=== PATIENT | male | born 1935 | race Caucasian/White ===

== ENCOUNTER 2019-07-16 12:36 | Inpatient (IN) | payer MEDICARE, OTHER ==
[~2019-07-16] VITALS: Ht 175.3 cm; Wt 99.8 kg
[2019-07-16] MEDS ORDERED: SODIUM CHLORIDE 0.9% 1000ML 1,000 ML IV STA ×3 (13:15→19:05)
[2019-07-16] MEDS ORDERED: ONDANSETRON HCL INJ 2MG/ML 2ML 2 MG/ML VIAL IV STA (13:15)
[2019-07-16 13:32] LABS: BASOPHILS % 0.3 % (0.0-1.0); EOSINOPHILS % 0.1 % (0.0-6.0); HEMATOCRIT 49.4 % (38.2-49.6); HEMOGLOBIN 17.3 g/dL (14.0-18.0); LYMPHOCYTES # (AUTO) 0.9 (1.0-3.2); LYMPHOCYTES % 5.7 % (18.0-39.1); MEAN CORPUSCULAR HEMOGLOBIN 32.5 pg (28-32); MEAN CORPUSCULAR VOLUME 92.7 fL (81-99); MONOCYTES # (AUTO) 0.7 (0.2-0.8); MONOCYTES % 4.5 % (4.4-11.3); NEUTROPHILS # (AUTO) 13.4 (2.1-6.9); NEUTROPHILS % 88.9 % (38.7-80.0); PLATELET COUNT 211 x10e3/uL (140-360); RED BLOOD COUNT 5.33 x10e6/uL (4.3-5.7); RED CELL DISTRIBUTION WIDTH 12.2 % (11.7-14.4)
--- NOTE | 2019-07-16 13:35 | Emergency Department Note ---
History of Present Illnes History of Present Illness Chief Complaint: General Medicine Complaints History of Present Illness This is a 83 year old male . from [place] via ems c/o ams HERE FROM [facility] WEAKNESS AND AMS THAT STARTED LAST NIGHT. Historian: Patient Arrival Mode: EMS Onset quality: unable to specify Duration (how long): day(s) (last night) Timing of current episode: constant Progression: unchanged Chronicity: new Context: recent illness, recent surgery, recent immobilization, recent travel, trauma/injury, new medications, hx of DVT/PE, non-compliance w/ medications, other Relieving factors: none Exacerbating factors: none Associated symptoms: confusion Treatments prior to arrival: none (JOSEFINA FIERRO NP) Past Medical/Family History Physician Review I have reviewed the patient's past medical and family history. Any updates have been documented here. (JOSEFINA FEIRRO NP) Past Medical History Unable to obtain PMH: Unable to obtain due to, altered mental status Recent Fever: No Clinical Suspicion of Infectio: No New/Unexplained Change in Ment: Yes Past Medical History: Hypertension, CVA, A-Fib, Hypothyroidism, GERD Past Surgical History: None (JOSEFINA FIERRO NP) Social History Smoking Cessation: Never Smoker Alcohol Use: None Any Illegal Drug Use: No TB Exposure/Symptoms: No (JOSEFINA FIERRO NP) Family History Family history of heart diseas: No (JOSEFINA FIERRO NP) Other Any Pre-Existing Lines (PICC,: No (JOSEFINA FIERRO NP) Review of Systems ROS Narrative Unable to obtain ROS: altered mental status (JOSEFINA FIERRO NP) Review of Systems Constitutional: no symptoms; chills, diaphoresis, fever EENTM: ear discharge, nose congestion Cardiovascular: edema Respiratory: cough, dyspnea, stridor, wheezing Gastrointestinal: vomiting Genitourinary: discharge Musculoskeletal: joint swelling Neurological: as per HPI, other (AMS) Psychological: no symptoms Endocrine: no symptoms Hematological/Lymphatic: no symptoms Review of other systems All other systems reviewed and negative. (JOSEFINA FIERRO NP) Physical Exam Related Data Allergies: Coded Allergies: lisinopril (Verified Allergy, Severe, 07/16/19) Uncoded Allergies: POLLEN (Allergy, Severe, 07/16/19) Unable to obtain allergies: altered mental status Triage Vital Signs Vital Signs Date Time Temp Pulse Resp B/P (MAP) Pulse Ox O2 Delivery O2 Flow Rate FiO2 5/20/20 12:38 97.8 73 16 130/76 100 Vital Signs Date Time Temp Pulse Resp B/P (MAP) Pulse Ox O2 Delivery O2 Flow Rate FiO2 07/16/19 12:38 97.8 73 16 130/76 100 Vital signs reviewed: Yes (JOSEFINA FIERRO DINING SERVICE WORKER) Physical Exam CONSTITUTIONAL Constitutional: well-developed, well-nourished HENT HENT: normocephalic, atraumatic HENT L/R: left ext ear normal, right ext ear normal EYES Eyes: conjunctivae normal NECK Neck: ROM normal PULMONARY Pulmonary: effort normal, breath sounds normal CARDIOVASCULAR Cardiovascular: regular rhythm GASTROINTESTINAL Abdominal: soft, bowel sounds normal GENITOURINARY Genitourinary: penis normal SKIN Skin: warm, dry; erythema MUSCULOSKELETAL Musculoskeletal: edema NEUROLOGICAL non verbal lethargic response to pain PSYCHOLOGICAL Exam - additional comments pt brought to ed via ems from [place] hx dementia - report AMS decreased activity lethargic non verbal when name called pt looks around (JOSEFINA FIERRO DINING SERVICE WORKER) Results Laboratory Laboratory Laboratory Tests Test 07/16/19 13:25 White Blood Count 15.04 x10e3/uL (4.8-10.8) Red Blood Count 5.33 x10e6/uL (4.3-5.7) Hemoglobin 17.3 g/dL (14.0-18.0) Hematocrit 49.4 % (38.2-49.6) Mean Corpuscular Volume 92.7 fL (81-99) Mean Corpuscular Hemoglobin 32.5 pg (28-32) Mean Corpuscular Hemoglobin Concent 35.0 g/dL (31-35) Red Cell Distribution Width 12.2 % (11.7-14.4) Platelet Count 211 x10e3/uL (140-360) Neutrophils (%) (Auto) 88.9 % (38.7-80.0) Lymphocytes (%) (Auto) 5.7 % (18.0-39.1) Monocytes (%) (Auto) 4.5 % (4.4-11.3) Eosinophils (%) (Auto) 0.1 % (0.0-6.0) Basophils (%) (Auto) 0.3 % (0.0-1.0) Neutrophils # (Auto) 13.4 (2.1-6.9) Lymphocytes # (Auto) 0.9 (1.0-3.2) Monocytes # (Auto) 0.7 (0.2-0.8) Eosinophils # (Auto) 0.0 (0.0-0.4) Basophils # (Auto) 0.0 (0.0-0.1) Absolute Immature Granulocyte (auto 0.07 x10e3/uL (0-0.1) Prothrombin Time 15.1 seconds (11.9-14.5) Prothromb Time International Ratio 1.12 Activated Partial Thromboplast Time 30.8 seconds (23.8-35.5) Urine Color Yellow (YELLOW) Urine Clarity Sl cloudy (CLEAR) Urine pH 6.5 (5 - 7) Urine Specific [place] 1.020 (1.010-1.025) Urine Protein >=300 (NEGATIVE) Urine Glucose (UA) Negative (NEGATIVE) Urine Ketones Trace (NEGATIVE) Urine Blood Small (NEGATIVE) Urine Nitrite Negative (NEGATIVE) Urine Bilirubin Negative (NEGATIVE) Urine Urobilinogen 0.2 mg/dL (0.2 - 1) Urine Leukocyte Esterase Negative (NEGATIVE) Urine RBC 0-5 /HPF (0-5) Urine WBC None /HPF (0-5) Urine Epithelial Cells Rare /LPF (NONE) Urine Bacteria None /HPF (NONE) Sodium Level 138 mmol/L (136-145) Potassium Level 4.8 mmol/L (3.5-5.1) Chloride Level 102 mmol/L (98-107) Carbon Dioxide Level 21 mmol/L (22-29) Anion Gap 19.8 mmol/L (8-16) Blood Urea Nitrogen 15 mg/dL (7-26) Creatinine 1.80 mg/dL (0.72-1.25) Estimat Glomerular Filtration Rate 36 ML/MIN (60-) BUN/Creatinine Ratio 8 (6-25) Glucose Level 129 mg/dL (74-118) Calcium Level 9.8 mg/dL (8.4-10.2) Magnesium Level 1.4 MG/DL (1.3-2.1) Total Bilirubin 2.0 mg/dL (0.2-1.2) Aspartate Amino Transf (AST/SGOT) 19 IU/L (5-34) Alanine Aminotransferase (ALT/SGPT) 13 IU/L (0-55) Alkaline Phosphatase 67 IU/L (40-150) Creatine Kinase 73 IU/L (30-200) Creatine Kinase MB 1.80 ng/mL (0-5.0) Troponin I 0.003 ng/mL (0-0.300) B-Type Natriuretic Peptide 219.1 pg/mL (0-100) Total Protein 7.0 g/dL (6.5-8.1) Albumin 3.8 g/dL (3.5-5.0) Globulin 3.2 g/dL (2.3-3.5) Albumin/Globulin Ratio 1.2 (0.8-2.0) Lipase 12 U/L (8-78) Thyroid Stimulating Hormone (TSH) 1.474 uIU/mL (0.350-4.940) (JOSEFINA FIERRO NP) Imaging Impressions Procedure: [id number] CT/CT BRAIN WO Exam Date: 07/16/19 Exam Time: 1407 REPORT STATUS: Signed Exam: Head CT without contrast History: Altered mental status Comparison studies: None Technique: Axial images were obtained from the skull base to the vertex. Coronal and sagittal images reconstructed from the axial data. Dose modulation, iterative reconstruction, and/or weight based adjustment of the mA/kV was utilized to reduce the radiation dose to as low as reasonably achievable. Radiation dose: Total DLP: 1036.57 mGy*cm. Estimated effective dose: DLP x 0.015 Intravenous contrast: None Findings: Exam is suboptimal due to artifacts related to patient motion. In spite of limitations: Scalp: No abnormalities. Bones: No fractures, blastic or lytic lesions. Brain sulci: Mildly prominent. Ventricles: Mild compensatory dilatation. No hydrocephalus. Extra-axial spaces: No masses, no fluid collection. Parenchyma: No mass, acute hemorrhage or acute cortical vascular insults. Subtle hypodensities in the periventricular white matter are nonspecific but may be mild chronic small vessel ischemic changes. Sellar/suprasellar region: No abnormalities. Craniocervical junction: Patent foramen magnum. No Chiari one malformation. Paranasal sinuses: Clear. Middle ear mastoid cavities: Clear. Incidental findings: Bilateral intraocular lens replacements. Calcified atherosclerosis in the carotid siphons, intradural vertebral arteries and basilar artery. IMPRESSION: No acute abnormalities. Chronic findings: 1. Mild generalized parenchymal volume loss. 2. Mild microvascular ischemic changes. Signed by: Dr. Michelle Selby M.D. on 07/16/2019 2:46 PM Dictated By: MICHELLE SELBY MD 45 Transcribed By: NITISH on 07/16/191445 Procedure: [id number] DX/CHEST SINGLE (PORTABLE) Exam Date: 07/16/19 Exam Time: 1410 REPORT STATUS: Signed X-ray chest AP portable Comparison: None History: Mental status Findings: Left subclavian pacer. Central airways unremarkable. Possible cardiomegaly. Possible layering effusions bilaterally. No pneumothorax. No definite focal airspace disease. Slight prominence of the pulmonary vascular markings could be positional. A mild interstitial edema cannot be ruled out. Visualized skeleton and upper abdomen unremarkable. Carotid artery calcification. Impression: As above. Signed by: Az Ferreira MD on 07/16/2019 2:49 PM Dictated By: [place] FERREIRA MD 48 Transcribed By: NITISH on 07/16/[address] - neg (JOSEFINA FIERRO DINING SERVICE WORKER) Procedures 12 Lead ECG Interpretation Lime Spreader: Interpreted by ED physician (Dr Ocasio) Date: July 16, 2019 Time: 13:23 Prior ENERGY PROJECT ENGINEER tracings: reviewed Rhythm: paced Rate: normal BPM: 64 QRS axis: left Clinical Impression: abnormal ECG (JOSEFINA FIERRO NP) Critical Care Time Subsequent provider I assumed direction of critical care for this patient from another provider of my specialty. (JOSEFINA FIERRO NP) Assessment & Plan Reassessment Reassessment time: 13:20 Reassessment 83 y m pt brought to ed via ems from [place] hx dementia - report AMS decreased activity lethargic non verbal when name called pt looks around - noted appears pt may have vomited at least once dry emesis to chin - pt restless w/ abd exam - Dr Ocasio in eval pt status - lab ekg cxr ct brain ct abd ordered pt medicated w/ zofran ns zosyn azithromax Dr Ocasio in at bedside re eval pt status - pt only reports does not feel good other hayes answering no other questions Vlad RN called [place] got report from nurse - reports pt usually a&o x 3 amb self dresses - sts some time last night became altered suspect sepsis - during triage process lactic blood cultures drawn pt medicted w/ zosyn azithromax ns bolus sirs criteria met - resp 29 - wbc 15.04 @1325 severe sepsis @ 0613 lactic 3.6 pt medicated w/ 2nd ns bolus suspect PNE - ct chest w/o ordered (JOSEFINA FIERRO NP) Assessment & Plan Final Impression: (1) AMS (altered mental status) (2) Leukocytosis (3) Sepsis Assessment & Plan Dr cOasio spoke w/ Dr Guadalupe will admit (JOSEFINA FIERRO NP) Depart Disposition: ADMITTED Last Vital Signs Date Time Temp Pulse Resp B/P (MAP) Pulse Ox O2 Delivery O2 Flow Rate FiO2 07/16/19 12:38 97.8 73 16 130/76 100 (JOSEFINA FIERRO NP) Medications in the ED Sodium Chloride 1,000 ml @ 0 mls/hr Q0M STAT IV ; Start 07/16/19 at 13:15; Stop 07/16/19 at 13:16 Ondansetron HCl 4 mg ONCE STAT IV ; Start 07/16/19 at 13:15; Stop 07/16/19 at 13:16; Status UNV (JOSEFINA FIERRO NP) Physician Attestation Provider Attestation The patient's history, exam findings, diagnostics, and a summary of any interventions or procedures was reviewed in detail with our SILVESTRE. I personally interviewed and examined the patient, and I have reviewed and agree with the HPI andexam. My personal exam shows patient very lethargic, responds to pain only, BARNARD's equally, L- decr BS's throughout poor effort, Neck- supple without meningeal signs. I confirm the diagnosis as documented by the SILVESTRE. I have reviewed and agree with the care plan articulated in the disposition section. (JULY OCASIO MD) JOSEFINA FIERRO NP July 16, 2019 13:35 JULY OCASIO MD July 16, 2019 16:48
[2019-07-16 13:41] LABS: CLARITY,URINE SL CLOUDY (CLEAR); COLOR,URINE YELLOW (YELLOW)
[2019-07-16 13:42] LABS: BILIRUBIN,URINE NEGATIVE (NEGATIVE); KETONES,URINE TRACE (NEGATIVE); LEUKOCYTE ESTERASE ,URINE NEGATIVE (NEGATIVE); NITRITE,URINE NEGATIVE (NEGATIVE); PROTEIN,URINE DIPSTICK >=300 (NEGATIVE); URINE UROBILINOGEN 0.2 mg/dL (0.2 - 1)
[2019-07-16 13:43] LABS: INR 1.12; PARTIAL THROMBOPLASTIN TIME 30.8 seconds (23.8-35.5); PROTHROMBIN TIME 15.1 seconds (11.9-14.5)
[2019-07-16 13:53] LABS: EPITHELIAL CELLS,URINE RARE /LPF; RBC,URINE 0-5 /HPF (0-5)
[2019-07-16 13:54] LABS: ALBUMIN 3.8 g/dL (3.5-5.0); ALBUMIN/GLOBULIN RATIO 1.2 (0.8-2.0); ANION GAP 19.8 mmol/L (8-16); CALCIUM 9.8 mg/dL (8.4-10.2); CREATININE, SERUM 1.8 mg/dL (0.72-1.25); MAGNESIUM 1.4 MG/DL (1.3-2.1); POTASSIUM 4.8 mmol/L (3.5-5.1)
[2019-07-16] MEDS ORDERED: AZITHROMYCIN 500MG/NS 250 ML 250 ML IV ONE (14:00)
[2019-07-16] MEDS ORDERED: PIPER-TAZ 3.375 GM 50 ML IV ONE (14:00)
[2019-07-16 14:13] LABS: CREATINE KINASE MB 1.8 ng/mL (0-5.0); THYROID STIMULATING HORMONE 1.474 uIU/mL (0.350-4.940)
--- NOTE | 2019-07-16 14:50 | Diagnostic Imaging Report ---
Exam: Head CT without contrast History: Altered mental status Comparison studies: None Technique: Axial images were obtained from the skull base to the vertex. Coronal and sagittal images reconstructed from the axial data. Dose modulation, iterative reconstruction, and/or weight based adjustment of the mA/kV was utilized to reduce the radiation dose to as low as reasonably achievable. Radiation dose: Total DLP: 1036.57 mGy*cm. Estimated effective dose: DLP x 0.015 Intravenous contrast: None Findings: Exam is suboptimal due to artifacts related to patient motion. In spite of limitations: Scalp: No abnormalities. Bones: No fractures, blastic or lytic lesions. Brain sulci: Mildly prominent. Ventricles: Mild compensatory dilatation. No hydrocephalus. Extra-axial spaces: No masses, no fluid collection. Parenchyma: No mass, acute hemorrhage or acute cortical vascular insults. Subtle hypodensities in the periventricular white matter are nonspecific but may be mild chronic small vessel ischemic changes. Sellar/suprasellar region: No abnormalities. Craniocervical junction: Patent foramen magnum. No Chiari one malformation. Paranasal sinuses: Clear. Middle ear mastoid cavities: Clear. Incidental findings: Bilateral intraocular lens replacements. Calcified atherosclerosis in the carotid siphons, intradural vertebral arteries and basilar artery. IMPRESSION: No acute abnormalities. Chronic findings: 1. Mild generalized parenchymal volume loss. 2. Mild microvascular ischemic changes. Signed by: Dr. Khai Selby M.D. on 07/16/2019 2:46 PM
--- NOTE | 2019-07-16 14:52 | Diagnostic Imaging Report ---
X-ray chest AP portable Comparison: None History: Mental status Findings: Left subclavian pacer. Central airways unremarkable. Possible cardiomegaly. Possible layering effusions bilaterally. No pneumothorax. No definite focal airspace disease. Slight prominence of the pulmonary vascular markings could be positional. A mild interstitial edema cannot be ruled out. Visualized skeleton and upper abdomen unremarkable. Carotid artery calcification. Impression: As above. Signed by: Imtiaz Cunha MD on 07/16/2019 2:49 PM
--- NOTE | 2019-07-16 15:20 | NUR ---
calling [facility] to obtain a better history of patient.
--- NOTE | 2019-07-16 15:31 | Diagnostic Imaging Report ---
CT of the abdomen and pelvis. Comparison: None Clinical History: Abdominal pain Technique: Helical CT scan of the abdomen and pelvis was performed. Intravenous contrast administration was not utilized. Oral contrast administration was not utilized. Coronal and sagittal reconstructions were generated from the raw data. Multiple images were submitted for interpretation. This exam was performed according to our departmental dose-optimization program which includes automated exposure control, adjustment of the mA and/or kV according to patient size Discussion: Inferior chest: Minimal dependent atelectasis otherwise unremarkable. There is a single chamber pacer wire in place. Coronary artery calcification. Liver: Unremarkable Spleen: Unremarkable Pancreas: Unremarkable for age Biliary tree and gallbladder: Post cholecystectomy. Otherwise unremarkable Adrenal glands: Unremarkable Kidneys and ureters: Shrunken kidneys with atrophic cortex. Otherwise unremarkable Vasculature: Atherosclerotic calcification. Lymph nodes: No lymphadenopathy Bowel: Unremarkable Pelvis: Urinary bladder is unremarkable. Prostate enlarged. Seminal vesicles unremarkable. Pelvic wall unremarkable. Peritoneum: Unremarkable Perineal compartments: unremarkable. Fluid: No free fluid or air. Bones: Degenerative disease Body wall: Small metallic densities in the left lower abdominal/pelvic wall suggestive of prior surgery or hernia repair. Impression: Limited CT showing no significant abnormality on this exam. Signed by: Imtiaz Cunha MD on 07/16/2019 3:28 PM
[2019-07-16] MEDS ORDERED: FAMOTIDINE 20 MG/2 ML VIAL IV SCH (16:00)
[2019-07-16] MEDS ORDERED: ONDANSETRON HCL INJ 2MG/ML 2ML 2 MG/ML VIAL IV PRN (16:00)
[2019-07-16] MEDS ORDERED: SODIUM CHLORIDE 0.9% 1000ML 1,000 ML IV SCH (16:00)
[2019-07-16] MEDS ORDERED: HYDRALAZINE HCL 20 MG/ML VIAL IV PRN (17:00)
[2019-07-16] MEDS ORDERED: ACETAMINOPHEN 325 MG TAB PO PRN (17:00)
[2019-07-16] MEDS ORDERED: AZITHROMYCIN 500MG/NS 250 ML 250 ML IV SCH (17:00)
[2019-07-16] MEDS: PIPERACILLIN/TAZO 2.25 GM 50 ML IV SCH ×2 (17:42→18:00)
--- NOTE | 2019-07-16 17:58 | Diagnostic Imaging Report ---
EXAMINATION: CT scan of the chest without contrast. TECHNIQUE: Spiral CT images of the chest were performed from the lung apices to the level of the adrenal glands. No intravenous contrast was administered per physician's request. Coronal and sagittal reformatted images were obtained. COMPARISON: None. CLINICAL HISTORY:AMS, chest pain, suspect pneumonia DISCUSSION: ABSENCE OF INTRAVENOUS CONTRAST DECREASES SENSITIVITY FOR DETECTION OF FOCAL LESIONS AND VASCULAR PATHOLOGY. LINES/TUBES: Left upper chest single lead cardiac device, with the distal tip in the right ventricle. LUNGS AND AIRWAYS: Minimal dependent atelectasis in bilateral lower lobes. Rest of the lungs show no consolidation, nodules or masses. 5-6 mm calcification with associated pleural linear scarring in the medial left apex (series 3, image 26). The airways are clear, without endobronchial lesions. PLEURA: No pneumothorax or pleural effusions. HEART AND MEDIASTINUM: The thyroid gland is normal. Moderate cardiomegaly, with biatrial enlargement. Atherosclerotic calcification of the aortic valves, coronary arteries and thoracic aorta. Aorta is nonaneurysmal. Main pulmonary artery is normal in caliber. LYMPH NODES: Borderline enlarged right paraesophageal node (series 2, image 68). No mediastinal, hilar or axillary adenopathy. ABDOMEN: Please see CT abdomen and pelvis performed same date for further detail. BONES AND SOFT TISSUES: No aggressive lytic or suspicious sclerotic lesions. Multilevel degenerated discs in the lower thoracic and upper lumbar spine, with intervertebral disc space narrowing and osteophytosis. Soft tissues are grossly unremarkable. IMPRESSION: 1. No CT evidence of pneumonia. 2. Minimal dependent atelectasis in bilateral lower lobes. Signed by: Dr. Ar Griffin M.D. on 07/16/2019 5:54 PM
[2019-07-16] MEDS ORDERED: LORAZEPAM INJ 2 MG/ML VIAL IV STA (20:21)
[2019-07-16] MEDS ORDERED: LORAZEPAM INJ 2 MG/ML VIAL ONE (20:29)
[2019-07-16] MEDS ORDERED: DEXTROSE 5%/0.9% SOD CHL 1,000 ML IV ONE (21:00)
[2019-07-16] MEDS ORDERED: LORAZEPAM INJ 2 MG/ML VIAL IV ONE (21:00)
[2019-07-16] MEDS ORDERED: SODIUM CHLORIDE 0.9% 1000ML 1,000 ML IV ONE (21:00)
[2019-07-16 23:08] VITALS: BP 139/73
[2019-07-16 23:10] VITALS: BP 139/73
--- NOTE | 2019-07-16 23:10 | NUR ---
PATIENT ARRIVED TO UNIT IN STABLE CONDITION AND RESTING. PATIENT EASILY AWAKEN BUT SCRATCHES AT HIMSELF AND GRASPS OR PULLS AT STAFF WHEN TOUCHING HIM, HE DOES NOT VERBALLY RESPOND OTHER THAN GRUNTING. WILL CONT TO MONITOR.
[2019-07-17] VITALS (11 sets, daily range): BP systolic 110–152; BP diastolic 64–111
[2019-07-17] MEDS: LORAZEPAM INJ 2 MG/ML VIAL IV PRN ×5 (00:15→22:02)
--- NOTE | 2019-07-17 00:15 | NUR ---
WHEN NURSE ATTEMPTED BLOOD DRAW FOR LACTIC DUE PATIENT BECAME COMBATIVE AND SCRATCHES STAFF OR HITS. PATIENT TRYING TO GET OUT OF BED BUT VERBALLY UNRESPONSIVE TO DIRECTION AND WHILE TRYING TO GET OUT OF BED LOOKS OFF INTO THE DISTANCE. UNABLE TO CALM PATIENT DOWN AND PATIENT PULLING AT LINES. MEDICATED WITH ORDERED ATIVAN. WILL CONTINUE TO MONITOR.
[2019-07-17] MEDS: PIPERACILLIN/TAZO 2.25 GM 50 ML IV SCH ×2 (00:42→05:39)
--- NOTE | 2019-07-17 03:50 | NUR ---
PATIENT BECAME COMBATIVE WHILE TRYING TO CHANGE HIS DIAPER AND OBTAIN NEXT LACTIC, GRABBED NURSES ARM AND WAS UNABLE TO BE CALMED DOWN BY SEVERAL STAFF, MEDICATED WITH ORDERED ATIVAN.
[2019-07-17 04:19] LABS: BASOPHILS % 0.4 % (0.0-1.0); EOSINOPHILS % 0.1 % (0.0-6.0); HEMATOCRIT 43.2 % (38.2-49.6); HEMOGLOBIN 14.8 g/dL (14.0-18.0); LYMPHOCYTES # (AUTO) 1.4 (1.0-3.2); LYMPHOCYTES % 13.3 % (18.0-39.1); MEAN CORPUSCULAR HEMOGLOBIN 32.7 pg (28-32); MEAN CORPUSCULAR HGB CONC 34.3 g/dL (31-35); MEAN CORPUSCULAR VOLUME 95.4 fL (81-99); MONOCYTES # (AUTO) 1.3 (0.2-0.8); MONOCYTES % 12.3 % (4.4-11.3); NEUTROPHILS # (AUTO) 7.9 (2.1-6.9); NEUTROPHILS % 73.5 % (38.7-80.0); PLATELET COUNT 170 x10e3/uL (140-360); RED BLOOD COUNT 4.53 x10e6/uL (4.3-5.7); RED CELL DISTRIBUTION WIDTH 12.7 % (11.7-14.4)
[2019-07-17 04:34] LABS: ALBUMIN 3.2 g/dL (3.5-5.0); ALBUMIN/GLOBULIN RATIO 1.1 (0.8-2.0); ANION GAP 17.6 mmol/L (8-16); CALCIUM 8.5 mg/dL (8.4-10.2); CHOL/HDL RATIO 4.1 (3.9-4.7); CREATININE, SERUM 1.58 mg/dL (0.72-1.25); POTASSIUM 4.6 mmol/L (3.5-5.1)
[2019-07-17 04:54] LABS: CREATINE KINASE MB 9.1 ng/mL (0-5.0); THYROID STIMULATING HORMONE 1.262 uIU/mL (0.350-4.940)
--- NOTE | 2019-07-17 06:39 | NUR ---
CALLED [facility] TO NOTIFY OF PATIENT STATUS AND CURRENT MORNING LABS WITH PT BP LOW 90S. ORDERED TO CHANGE FLUIDS TO D5 1/2NS @100ML/HR AND THEY WILL SEE PT THIS AM.
[2019-07-17] MEDS ORDERED: DEXTROSE 5%/0.225% SOD CHL 1,000 ML IV SCH (06:45)
[2019-07-17] MEDS: DEXTROSE 5%/0.45% SOD CHL 1,000 ML IV SCH ×2 (07:02→21:42)
--- NOTE | 2019-07-17 07:39 | NUR ---
PT SLEEPING AT THIS TIME, BEDSIDE REPORT GIVEN TO FLORY RN ABOUT PT AND STATUS. LACTIC DUE AT 8AM.
[2019-07-17] MEDS: FAMOTIDINE 20 MG/2 ML VIAL IV SCH ×2 (08:21→21:42)
--- OUTSIDE RECORDS SUMMARY | 2019-07-17 09:06 | XMS REPORT | Summary of Care ---
Author Author [facility] Organization [facility] Address Unknown Phone Unavailable Encounter ANANTH Strickland(FIN) [id number] Date(s): 01/27/19 - 01/27/19 [facility] [address] [place] [address] 2 [phone] Discharge Disposition: Home or Self Care Attending Physician: Gerber Ritter MD Vital Signs No data available for this section Problem List Condition Effective Dates Status Health Status Informan t Gout(Confirmed) Resolved Hypertension(Confirm Resolved ed) Hypothyroid(Confirme Resolved d) Allergies, Adverse Reactions, Alerts No Known Allergies Medications acetaminophen 325 mg oral tablet 650 mg = 2 tab, PO, Q4H, 0 Refill(s) Start Date: 01/27/19 Status: Ordered allopurinol 100 mg oral tablet 100 mg = 1 tab, PO, BID, 0 Refill(s) Start Date: 01/27/19 Status: Ordered aspirin 81 mg tablet, enteric coated 81 mg = 1 tab, PO, Daily, # 90 tab, 3 Refill(s) Start Date: 01/27/19 Status: Ordered Eliquis 5 mg oral tablet 5 mg, PO, Q12H, 0 Refill(s) Start Date: 01/27/19 Status: Ordered erythromycin topical 2% gel TOP, BID, 0 Refill(s) Start Date: 01/27/19 Status: Ordered folic acid 0.4 mg oral tablet 0.4 mg = 1 tab, PO, Daily, # 100 tab, 0 Refill(s) Start Date: 01/27/19 Status: Ordered hydrALAZINE 25 mg oral tablet 25 mg = 1 tab, PO, QID, 0 Refill(s) Start Date: 01/27/19 Status: Ordered levothyroxine 125 mcg (0.125 mg) oral tablet 125 microgram = 1 tab, PO, Daily, 0 Refill(s) Start Date: 01/27/19 Status: Ordered liothyronine 5 mcg oral tablet 5 microgram = 1 tab, PO, Daily, 0 Refill(s) Start Date: 01/27/19 Status: Ordered loperamide 2 mg oral capsule 2 mg = 1 cap, PO, Q4H, PRN loose stools, # 60 cap, 0 Refill(s) Start Date: 01/27/19 Stop Date: 02/06/19 Status: Ordered metoprolol succinate 25 mg oral capsule, extended release 25 mg = 1 cap, PO, Daily, 0 Refill(s) Start Date: 01/27/19 Status: Ordered Milk of Magnesia PO, Bedtime, 0 Refill(s) Start Date: 01/27/19 Status: Ordered omeprazole 20 mg oral delayed release capsule 20 mg = 1 cap, PO, Daily, 0 Refill(s) Start Date: 01/27/19 Status: Ordered polyethylene glycol 3350 17 gm, PO, Daily, 0 Refill(s) Start Date: 01/27/19 Status: Ordered QUEtiapine 50 mg oral tablet 50 mg = 1 tab, PO, BID, 0 Refill(s) Start Date: 01/27/19 Status: Ordered ramipril 10 mg oral capsule 10 mg = 1 cap, PO, Daily, 0 Refill(s) Start Date: 01/27/19 Status: Ordered Stool Softener with Laxative 50 mg-8.6 mg oral tablet 2 tab, PO, Bedtime, 0 Refill(s) Start Date: 01/27/19 Status: Ordered Vitamin C 500 mg oral tablet 500 mg = 1 tab, PO, Daily, 0 Refill(s) Start Date: 01/27/19 Status: Ordered Vitamin D3 5000 intl units oral capsule 5,000 IntlUnit = 1 cap, PO, Daily, # 30 cap, 1 Refill(s) Start Date: 01/27/19 Status: Ordered Results No data available for this section Immunizations No data available for this section Procedures Procedure Date Related Diagnosis Body Site Status TURP - Transurethral resection of prostate 2017 Completed Gallbladder operation Completed Social History Social History Type Response Smoking Status Former smoker; Exposure to Tobacco Smoke None; Cigarette Smoking Last 365 Days No; Reg Smoking Cessation Counseli ng No entered on: 01/27/19 Assessment and Plan No data available for this section
--- OUTSIDE RECORDS SUMMARY | 2019-07-17 09:06 | XMS REPORT | Continuity of Care Document ---
Author Author Chintan Lozano [employer] JOHNATHAN Huffman [employer] Address Unknown Phone Unavailable Care Team Providers Care Emission Specialist Name Role Phone [employer] Unavailable Un available Problems Problem Status Onset Date Classification Date Reported Comments Source Gout (disorder) Resolved Problem 01/30/2019 [facility] Hypertensive disorder, systemic arterial (disorder) Resolved Problem 01/30/2019 [facility] Hypothyroidism (disorder) Reso lved Problem 06/2018 [facility] Medications Medication Details Route Status Patient Instructions Ordering Provider Order Date Source omeprazole 20 mg oral delayed release capsule 20 mg = 1 cap, PO, Daily, 0 Refill(s) Active 01/27/2019 [facility] levothyroxine 125 mcg (0.125 mg) oral tablet 125 microgram = 1 tab, PO, Daily, 0 Refill(s) Active 01/27/2019 [facility] allopurinol 100 mg oral tablet 100 mg = 1 tab, PO, BID, 0 Refill(s) Active 01/27/2019 [facility] Aspirin 81 MG Enteric Coated Tablet 81 mg = 1 tab, PO, Daily, # 90 tab, 3 Refill(s) Active 01/27/2019 [facility] Folic Acid 0.4 MG Oral Tablet 0.4 mg = 1 tab, PO, Daily, # 100 tab, 0 Refill(s) Active 01/27/2019 [facility] liothyronine 5 mcg oral tablet 5 microgram = 1 tab, PO, Daily, 0 Refill(s) Active 01/27/2019 [facility] metoprolol succinate 25 mg oral capsule, extended release 25 mg = 1 cap, PO, Daily, 0 Refill(s) Active 01/27/2019 [facility] POLYETHYLENE GLYCOL 3350 17 gm , PO, Daily, 0 Refill(s) Active 01/27/2019 [facility] ramipril 10 mg oral capsule 10 mg = 1 cap, PO, Daily, 0 Refill(s) Active 01/27/2019 [facility] Vitamin D3 5000 intl units oral capsule 5,000 IntlUnit = 1 cap, PO, Daily, # 30 cap, 1 Refill(s) Active 01/27/2019 [facility] apixaban 5 MG Oral Tablet [Eliquis] 5 mg, PO, Q12H, 0 Refill(s) Active 01/27/2019 [facility] Erythromycin 0.02 MG/MG Topical Gel TOP, BID, 0 Refill(s) Active 01/27/2019 [facility] Vitamin C 500 mg oral tablet 5 00 mg = 1 tab, PO, Daily, 0 Refill(s) Active 01/27/2019 [facility] Hydralazine Hydrochloride 25 MG Oral Tablet 25 mg = 1 tab, PO, QID, 0 Refill(s) Active 01/27/2019 [facility] QUEtiapine 50 mg oral tablet 5 0 mg = 1 tab, PO, BID, 0 Refill(s) Active 01/27/2019 [facility] Acetaminophen 325 MG Oral Tablet 650 mg = 2 tab, PO, Q4H, 0 Refill(s) Active 01/27/2019 [facility] loperamide 2 mg oral capsule 2 mg = 1 cap, PO, Q4H, PRN loose stools, # 60 cap, 0 Refill(s) Active 01/27/2019 [facility] Milk of Magnesia PO, Bedtime, 0 Refill(s) Active 01/27/2019 [facility] Stool Softener with Laxative 50 mg-8.6 mg oral tablet 2 tab, PO, Bedtime, 0 Refill(s) Active 01/27/2019 [facility] Allergies, Adverse Reactions, Alerts No Known Medication Allergies Immunizations No Data Provided for This Section Results No Data Provided for This Section Pathology Reports No Data Provided for This Section Diagnostic Reports No Data Provided for This Section Consultation Notes No Data Provided for This Section Discharge Summaries No Data Provided for This Section History and Physicals No Data Provided for This Section Vital Signs No Data Provided for This Section Encounters Location Location Details Encounter Type Encounter Number Reason For Visit Attending Provider ADM Date DC Date Status Source Outpatient [id number] [facility] 01/27/2019 Active [facility] [place] [facility] [id number] [facility] 01/27/2019 01/28/2019 [facility] Procedures Procedure Code Date Perfomer Comments Source TURP - Transurethral resection of prostate [id number] 02/27/2016 [facility] Gallbladder operation [id number] [facility] Assessment and Plan No Data Provided for This Section Plan of Care No Data Provided for This Section Social History Social History Date Source Social History TypeResponse Smoking Status Former smoker; Exposure to Tobacco Smoke None; Cigarette Smoking Last 365 Days No; Reg Smoking Cessation Counseling No entered on: 01/27/19 01/27/[facility] Family History No Data Provided for This Section Advance Directives No Data Provided for This Section Functional Status No Data Provided for This Section
--- OUTSIDE RECORDS SUMMARY | 2019-07-17 10:16 | XMS REPORT | Continuity of Care Document ---
Author Author Chintan Lozano [employer] JOHNATHAN Huffman [place] Address Unknown Phone Unavailable Care Team Providers Care High Density Press Operator Name Role Phone [employer] Unavailable Un available Problems Problem Status Onset Date Classification Date Reported Comments Source Gout (disorder) Resolved Problem 01/30/2019 [facility] Hypertensive disorder, systemic arterial (disorder) Resolved Problem 01/30/2019 [facility] Hypothyroidism (disorder) Reso lved Problem 06/2018 [facility] Medications Medication Details Route Status Patient Instructions Ordering Provider Order Date Source omeprazole 20 mg oral delayed release capsule 20 mg = 1 cap, PO, Daily, 0 Refill(s) Active 01/27/2019 [facility] levothyroxine 125 mcg (0.125 mg) oral tablet 125 microgram = 1 tab, PO, Daily, 0 Refill(s) Active 01/27/2019 [facility] allopurinol 100 mg oral tablet 100 mg = 1 tab, PO, BID, 0 Refill(s) Active 01/27/2019 [facility] Aspirin 81 MG Enteric Coated Tablet 81 mg = 1 tab, PO, Daily, # 90 tab, 3 Refill(s) Active 01/27/2019 [facility] Folic Acid 0.4 MG Oral Tablet 0.4 mg = 1 tab, PO, Daily, # 100 tab, 0 Refill(s) Active 01/27/2019 [facility] liothyronine 5 mcg oral tablet 5 microgram = 1 tab, PO, Daily, 0 Refill(s) Active 01/27/2019 [facility] metoprolol succinate 25 mg oral capsule, extended release 25 mg = 1 cap, PO, Daily, 0 Refill(s) Active 01/27/2019 [facility] POLYETHYLENE GLYCOL 3350 17 gm , PO, Daily, 0 Refill(s) Active 01/27/2019 [facility] ramipril 10 mg oral capsule 10 mg = 1 cap, PO, Daily, 0 Refill(s) Active 01/27/2019 [facility] Vitamin D3 5000 intl units oral capsule 5,000 IntlUnit = 1 cap, PO, Daily, # 30 cap, 1 Refill(s) Active 01/27/2019 [facility] apixaban 5 MG Oral Tablet [Eliquis] 5 mg, PO, Q12H, 0 Refill(s) Active 01/27/2019 [facility] Erythromycin 0.02 MG/MG Topical Gel TOP, BID, 0 Refill(s) Active 01/27/2019 [facility] Vitamin C 500 mg oral tablet 5 00 mg = 1 tab, PO, Daily, 0 Refill(s) Active 01/27/2019 [facility] Hydralazine Hydrochloride 25 MG Oral Tablet 25 mg = 1 tab, PO, QID, 0 Refill(s) Active 01/27/2019 [facility] QUEtiapine 50 mg oral tablet 5 0 mg = 1 tab, PO, BID, 0 Refill(s) Active 01/27/2019 [facility] Acetaminophen 325 MG Oral Tablet 650 mg = 2 tab, PO, Q4H, 0 Refill(s) Active 01/27/2019 [facility] loperamide 2 mg oral capsule 2 mg = 1 cap, PO, Q4H, PRN loose stools, # 60 cap, 0 Refill(s) Active 01/27/2019 [facility] Milk of Magnesia PO, Bedtime, 0 Refill(s) Active 01/27/2019 [facility] Stool Softener with Laxative 50 mg-8.6 mg oral tablet 2 tab, PO, Bedtime, 0 Refill(s) Active 01/27/2019 [facility] Allergies, Adverse Reactions, Alerts No Known [...] ADM Date DC Date Status Source Outpatient [id number] [facility] 01[facility]27/2019 [id number] Procedures Procedure Code Date Perfomer Comments Source TURP - Transurethral resection of prostate [id number] 02/27/2016 [facility] Gallbladder operation [id number] [facility] Assessment and Plan No Data [...]
[2019-07-17] MEDS ORDERED: LIOTHYRONINE SO5 MCG PO (10:33)
[2019-07-17] MEDS ORDERED: LOPERAMIDE2 MG PO (10:33)
[2019-07-17] MEDS ORDERED: VIT (10:33)
[2019-07-17] MEDS ORDERED: SYNTHROID125 MCG PO (10:33)
[2019-07-17] MEDS ORDERED: ELIQUIS5 MG (10:33)
[2019-07-17] MEDS ORDERED: SARNA ANTI-ITC222 ML (10:33)
[2019-07-17] MEDS ORDERED: HYDRALAZINE HCL25 MG PO (10:33)
[2019-07-17] MEDS ORDERED: METOPROLOL SUCC25 MG PO (10:33)
[2019-07-17] MEDS ORDERED: RAMIPRIL5 MG PO (10:33)
[2019-07-17] MEDS ORDERED: ASPIRIN EC81 MG PO (10:33)
[2019-07-17] MEDS ORDERED: ERYTHROMYCIN 2%30 GM (10:33)
[2019-07-17] MEDS ORDERED: MILK OF MA2400 MG/10 PO (10:33)
[2019-07-17] MEDS ORDERED: VITAMIN C500 M1 PO (10:33)
[2019-07-17] MEDS ORDERED: ALLOPURINOL100 MG PO (10:33)
[2019-07-17] MEDS ORDERED: OMEPRAZOLE40 MG PO (10:33)
[2019-07-17] MEDS ORDERED: SENEXON-S 50-81 EACH (10:33)
[2019-07-17] MEDS ORDERED: ACETAMINOPHEN325 M1 PO (10:33)
[2019-07-17] MEDS ORDERED: POLYETHYLENE GL17 GM PO (10:33)
[2019-07-17] MEDS ORDERED: FOLIC ACID (10:33)
[2019-07-17] MEDS: CEFTRIAXONE SOD 1 GM/NS 50 ML 50 ML IV SCH (11:30)
[2019-07-17] MEDS ORDERED: LORAZEPAM INJ 2 MG/ML VIAL IV PRN (11:30)
[2019-07-17 12:04] LABS: CREATINE KINASE MB 9.5 ng/mL (0-5.0)
[2019-07-17] MEDS: APIXABAN 5 MG TABLET PO SCH (17:00)
--- NOTE | 2019-07-17 19:40 | NUR ---
PATIENT'S IV NOTED TO BE INFILTRATED, MULTIPLE FAILED ATTEMPTS BY IMCU AND ICU STAFF CALLED ER FOR NURSE TO PLACE IV SO MEDS CAN BE ADMINISTERED. AWAITING PLACEMENT.
--- NOTE | 2019-07-17 21:17 | NUR ---
CALLED AND SPOKE WITH LIANA STRIKER OFF FOR DR COLLINS AND NOTIFIED OF NO IV ACCESS ATTAINABLE AND PT ON FLUIDS, IV ANTIBIOTICS, AMS, RESTRAINTS AND NPO; ORDERED TO HAVE STAT MIDLINE PLACED, SPOKE WITH FUEL CELL BUILDER AND WAS TOLD TO CALL [facility] FOR PLACEMENT AND NOTIFIED FOR MIDLINE PLACEMENT.
[2019-07-18] VITALS (15 sets, daily range): BP systolic 116–158; BP diastolic 75–95
--- NOTE | 2019-07-18 01:07 | NUR ---
NURSE FROM [facility] TEAM CALLED TO DISCUSS DOING MIDLINE ON PT AND STATES HE DOESNT THINK HE CAN DO IT BECAUSE THE PT IS NOT SEDATED AND CAN'T BE RESTRAINED IN A WAY TO HAVE THE PROCEDURE DONE STERILE AND WANTED ME TO CALL THE DR AND HAVE THE PT GIVEN MORE MEDS SO THAT HE COULD NOT MOVE DURING PROCEDURE. ED THAT PT HAS ORDERED MEDS BUT NOT TO SEDATE AND OFFERED OTHER ASSISTANCE BUT THE NURSE FOR THE TEAM WANTED TO SPEAK WITH DR SO PROVIDED INFORMATION AND HE STATES HE WILL CALL DR AND SEE WHAT CAN BE DONE.
--- NOTE | 2019-07-18 01:10 | NUR ---
[facility] NURSE STATES HE SPOKE WITH LIANA TUFTING MACHINE FIXER FOR [facility] AND THEY WILL HOLD OFF UNTIL AM AND MAKE DECISION ABOUT IF THE PT NEEDS LINE AT THAT TIME SINCE ER WAS ABLE TO GET AN IV IN PT WHILE WAITING FOR THEM. PT IS RESTING COMFORTABLY AT THIS TIME, NO SIGNS OF DISTRESS NOTED. WILL CONT TO MONITOR. NOTIFIED CHARGE NURSE OF SITUATION.
[2019-07-18] MEDS: LORAZEPAM INJ 2 MG/ML VIAL IV PRN (03:28)
[2019-07-18 05:28] LABS: BASOPHILS # (AUTO) 0.1 (0.0-0.1); BASOPHILS % 0.5 % (0.0-1.0); EOSINOPHILS # (AUTO) 0.1 (0.0-0.4); EOSINOPHILS % 0.8 % (0.0-6.0); HEMATOCRIT 44.9 % (38.2-49.6); HEMOGLOBIN 15.2 g/dL (14.0-18.0); LYMPHOCYTES # (AUTO) 1.4 (1.0-3.2); LYMPHOCYTES % 10.9 % (18.0-39.1); MEAN CORPUSCULAR HEMOGLOBIN 32.3 pg (28-32); MEAN CORPUSCULAR HGB CONC 33.9 g/dL (31-35); MEAN CORPUSCULAR VOLUME 95.3 fL (81-99); MONOCYTES # (AUTO) 1.1 (0.2-0.8); MONOCYTES % 8.6 % (4.4-11.3); NEUTROPHILS # (AUTO) 10.2 (2.1-6.9); NEUTROPHILS % 78.7 % (38.7-80.0); PLATELET COUNT 158 x10e3/uL (140-360); RED BLOOD COUNT 4.71 x10e6/uL (4.3-5.7); RED CELL DISTRIBUTION WIDTH 12.5 % (11.7-14.4)
[2019-07-18 05:56] LABS: ALBUMIN 2.9 g/dL (3.5-5.0); ANION GAP 10.9 mmol/L (8-16); CALCIUM 7.9 mg/dL (8.4-10.2); CREATININE, SERUM 1.28 mg/dL (0.72-1.25); MAGNESIUM 1.6 MG/DL (1.3-2.1); POTASSIUM 3.9 mmol/L (3.5-5.1)
[2019-07-18] MEDS ORDERED: LEVOTHYROXINE SODIUM 125 MCG TAB PO SCH (06:00)
[2019-07-18] MEDS ORDERED: LIOTHYRONINE SODIUM 5 MCG TAB PO SCH (06:30)
[2019-07-18] MEDS: PANTOPRAZOLE SOD 40 MG TABEC PO SCH ×2 (07:30→12:25)
[2019-07-18] MEDS: METOPROLOL SUCCINATE 25 MG TAB XL PO SCH ×2 (09:00→12:27)
[2019-07-18] MEDS ORDERED: POLYETHYLENE GLYCOL 3350 17 GM PACK PO SCH (09:00)
[2019-07-18] MEDS: APIXABAN 5 MG TABLET PO SCH ×3 (09:00→18:38)
[2019-07-18] MEDS: ALLOPURINOL 100 MG TAB PO SCH ×2 (09:00→12:25)
[2019-07-18] MEDS: ASPIRIN 81 MG ENTERIC COATED PO SCH ×2 (09:00→12:25)
[2019-07-18] MEDS: FAMOTIDINE 20 MG/2 ML VIAL IV SCH (09:59)
[2019-07-18] MEDS: CEFTRIAXONE SOD 1 GM/NS 50 ML 50 ML IV SCH (12:25)
[2019-07-18] MEDS: QUETIAPINE FUMARATE 25 MG TAB PO SCH ×2 (13:20→15:00)
--- NOTE | 2019-07-18 14:15 | NUR ---
Spoke with regarding SNF eval order. States she has a friend who recommended [facility] [address]. Gave choice for [facility]. Choice letter placed in front of chart. Referral faxed to [facility] at [phone] / Francie with facility was notified of referral.
--- NOTE | 2019-07-18 16:44 | NUR ---
[facility] FACILITY DISCHARGE INFORMATION PATIENT HAS BEEN ACCEPTED TO: [facility] [place] [address] [place] [address] ACCEPTING MEDICAL RECORD TECHNICIAN: Andrey Funk ACCEPTING MD: Dr. Guadalupe ROOM: 415A NURSE CALL REPORT TO: [phone] IMM SIGNED AND OBTAINED (if applicable): yes, discussed with . She verbalized understanding. Signed copy in chart. Copy to THE FOLLOWING DOCUMENTS MUST ACCOMPANY PATIENT FOR TRANSFER: copy of chart. transfer MAR RTF: completed and placed with pt's packet at nurses station [id number] DNR: n/a KIANA Rabago was informed of bed. PASSR and COVID form faxed to facility.
--- NOTE | 2019-07-18 18:34 | Discharge Summary ---
ADMISSION DIAGNOSES: 1. Acute metabolic encephalopathy of unknown source, present on admission. 2. Septic shock, source unknown. 3. Dementia. 4. Gout. 5. Hypertension. 6. Atrial fibrillation. 7. Acute kidney injury. 8. Hypothyroidism. DISCHARGE DIAGNOSES: 1. Acute metabolic encephalopathy of unknown source, present on admission. 2. Septic shock, source unknown. 3. Dementia. 4. Gout. 5. Hypertension. 6. Atrial fibrillation. 7. Acute kidney injury. 8. Hypothyroidism. 9. Rule out COVID. 10. Rule out bacteremia. 11. Rule out urinary tract infection. 12. Rule out hepatic encephalopathy. 13. Rule out pneumonia. HISTORY: Hypothyroidism, dementia, GERD, gout, hypertension, atrial fibrillation, TIA. SURGICAL HISTORY: TURP, cholecystectomy, pacer. FAMILY HISTORY: The patient's dad had cancer. SOCIAL HISTORY: Noncontributory. HOSPITAL COURSE: An 83-year-old male admits from [facility] per nursing staff with complaints of AMS. HPI and history are from the patient's , Yenifer. On admission, the patient's lactic acid that is high of 5.3. The patient was dennis cultured, which all was negative. Urine culture negative. Blood culture negative. CT chest and chest x-ray negative. CT of the brain showed no acute abnormalities. The patient is unable to have an MRI due to his pacemaker. Ammonia level was within normal limits. The patient remained afebrile. Initially, the patient was started on Rocephin for suspected urinary tract infection, but was discontinued at the time of discharge since the urine cultures negative. Plan was discussed with the patient's as it is likely that the patient has worsening vascular dementia as all other exams are negative. The patient will discharge to [facility] for further physical therapy prior to returning to assisted living. The patient's understands discharge instructions and agrees to plan. Vital signs are stable. The patient is afebrile. Dictated by Beatriz Grady NP Chris Guadalupe MD BLAN[facility]/MODL /[id number]
--- NOTE | 2019-07-18 19:35 | NUR ---
EMS on the floor to take patient to [facility].
[2019-07-18] MEDS ORDERED: QUETIAPINE FUMARATE 25 MG TAB PO SCH (21:00)
== END 2019-07-18 20:00 | DRG 871 ==
LOC: ER 12:36 → ERHOLD 16:04 → IMCU 20:09
PROVIDERS: ADMIT Internal Medicine; ATTEND Internal Medicine
DX: A41.9 Sepsis, unspecified organism (principal); R65.21 Severe sepsis with septic shock; G93.41 Metabolic encephalopathy; N17.9 Acute kidney failure, unspecified; M62.82 Rhabdomyolysis; I48.91 Unspecified atrial fibrillation; E03.9 Hypothyroidism, unspecified; M10.9 Gout, unspecified; Z11.59 Encounter for screening for other viral diseases; F01.50 Vascular dementia, unspecified severity, without behavioral disturbance, psychotic disturbance, mood disturbance, and anxiety; R26.9 Unspecified abnormalities of gait and mobility; Z66 Do not resuscitate; Z86.73 Personal history of transient ischemic attack (TIA), and cerebral infarction without residual deficits; K21.9 Gastro-esophageal reflux disease without esophagitis; I10 Essential (primary) hypertension
CPT/HCPCS: 36415; 70450; 71045; 71250; 74176; 80053; 80061; 81001; 82140; 82550; 82553; 82948; 83036; 83605; 83690; 83735; 83880; 84443; 84484; 85025; 85610; 85730; 87040; 87086; 87635; 93005; 93306; 93880; 97139; 99284; J0360; J0456; J0696; J2060; J2405; J2543; J7030; J7042

== ENCOUNTER 2019-08-18 13:05 | Emergency (ER) | payer MEDICARE ==
[~2019-08-18] VITALS: Ht 327.7 cm; Wt 99.8 kg
[~2019-08-18 13:05] MED LIST: ACETAMINOPHEN325 M1 PO; ALLOPURINOL100 MG PO; ASPIRIN EC81 MG PO; ELIQUIS5 MG; ERYTHROMYCIN 2%30 GM; FOLIC ACID; HYDRALAZINE HCL25 MG PO; LIOTHYRONINE SO5 MCG PO; LOPERAMIDE2 MG PO; METOPROLOL SUCC25 MG PO; MILK OF MA2400 MG/10 PO; OMEPRAZOLE40 MG PO; POLYETHYLENE GL17 GM PO; RAMIPRIL5 MG PO; SARNA ANTI-ITC222 ML; SENEXON-S 50-81 EACH; SYNTHROID125 MCG PO; VIT; VITAMIN C500 M1 PO
--- NOTE | 2019-08-18 14:14 | NUR ---
SPOKE TO CLIENTS , AND SHE STATES THAT CLIENT CAN RETURN TO [facility] IF WE DO NOT IDENTIFY A NEED TO TREAT.
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
[2019-08-18 15:42] LABS: BASOPHILS % 0.3 % (0.0-1.0); EOSINOPHILS # (AUTO) 0.1 (0.0-0.4); EOSINOPHILS % 1.4 % (0.0-6.0); HEMATOCRIT 53.6 % (38.2-49.6); HEMOGLOBIN 18.1 g/dL (14.0-18.0); LYMPHOCYTES # (AUTO) 1.9 (1.0-3.2); LYMPHOCYTES % 26.5 % (18.0-39.1); MEAN CORPUSCULAR HEMOGLOBIN 31.7 pg (28-32); MEAN CORPUSCULAR HGB CONC 33.8 g/dL (31-35); MEAN CORPUSCULAR VOLUME 93.9 fL (81-99); MONOCYTES # (AUTO) 0.8 (0.2-0.8); MONOCYTES % 10.2 % (4.4-11.3); NEUTROPHILS # (AUTO) 4.5 (2.1-6.9); NEUTROPHILS % 61.3 % (38.7-80.0); PLATELET COUNT 135 x10e3/uL (140-360); RED BLOOD COUNT 5.71 x10e6/uL (4.3-5.7); RED CELL DISTRIBUTION WIDTH 13.2 % (11.7-14.4)
[2019-08-18 15:46] LABS: CLARITY,URINE CLEAR (CLEAR); COLOR,URINE YELLOW (YELLOW); KETONES,URINE NEGATIVE (NEGATIVE); LEUKOCYTE ESTERASE ,URINE NEGATIVE (NEGATIVE); NITRITE,URINE NEGATIVE (NEGATIVE); PROTEIN,URINE DIPSTICK >=300 (NEGATIVE); URINE UROBILINOGEN 4 mg/dL (0.2 - 1)
[2019-08-18 15:47] LABS: BILIRUBIN,URINE NEGATIVE (NEGATIVE)
[2019-08-18 16:00] LABS: ALBUMIN 3.4 g/dL (3.5-5.0); ANION GAP 16.2 mmol/L (8-16); CALCIUM 9.5 mg/dL (8.4-10.2); CREATININE, SERUM 1.57 mg/dL (0.72-1.25); POTASSIUM 5.2 mmol/L (3.5-5.1)
[2019-08-18 16:08] LABS: CREATINE KINASE MB 4.7 ng/mL (0-5.0); WBC,URINE (MAN) 0-5 /HPF (0-5)
[2019-08-18 16:09] LABS: BACTERIA,URINE FEW /HPF; EPITHELIAL CELLS,URINE FEW /LPF
--- NOTE | 2019-08-18 16:16 | NUR ---
[facility] CALLED FOR TRANSPORT TO [facility]
[2019-08-18] MEDS ORDERED: SOD POLYSTYRENE SULFONATE SUSP 15 GM/60 ML BTL PO ONE (16:45)
--- NOTE | 2019-08-18 17:11 | NUR ---
[facility] [phone]
--- NOTE | 2019-08-18 17:25 | NUR ---
VERBAL ORDERS GIVEN STRAIGHT CATH AND RESTRAINTS PER MD PLACED PER MD REQUEST. RBVO
--- NOTE | 2019-08-18 17:34 | Emergency Department Note ---
History of Present Illnes History of Present Illness Chief Complaint: General Medicine Complaints History of Present Illness This is a 83 year old male sent to the ED because he was difficult to arouse. Patient well-appearing emergency department at this time has no complaints, however, does have a history of advanced dementia spoke to patient's and informed patient presented, she states this is his baseline.. Chief Complaint Comment AWAKE/ALERT. SWATS AT STAFF. HX OF ADVANCED DEMENTIA. [facility] [place] [facility] THE STAFF TRIED TO WAKE PT AND FOUND HIM HARD TO AROUSE....PT AWAKE NOW IN NO NOTED ACUTE DISTRESS AT TRIAGE. Historian: Research And Development Director/EMS Arrival Mode: [facility] Treatment CREDIT INVESTIGATOR: See EMS Report Additional Treatment CREDIT INVESTIGATOR: [facility] History limited by: condition of the patient Onset (how long ago): hour(s) Severity: unable to specify Onset quality: unable to specify Progression: unable to specify Chronicity: new Past Medical/Family History Physician Review I have reviewed the patient's past medical and family history. Any updates have been documented here. Past Medical History Recent Fever: No Clinical Suspicion of Infectio: No New/Unexplained Change in Ment: No Past Medical History: Hypertension, CVA, A-Fib, Hypothyroidism Past Surgical History: None Other Surgery: UNABLE TO OBTAIN, LEFT PATIENT AND PATIENT IS AMS Social History Smoking Cessation: Unknown if ever smoked Counseling Performed: No Alcohol Use: None Other Last Flu: U Last Pneumovax: U Review of Systems ROS Narrative Unable to obtain ROS: Unable to obtain due to, altered mental status, other (advanced dementia) Review of Systems Review of other systems: All other systems negative Physical Exam Related Data Allergies: Coded Allergies: lisinopril (Verified Allergy, Severe, 07/16/19) pollen extracts (Verified Allergy, Severe, 07/17/19) Uncoded Allergies: POLLEN (Allergy, Severe, 07/16/19) Triage Vital Signs Vital Signs Date Time Temp Pulse Resp B/P (MAP) Pulse Ox O2 Delivery O2 Flow Rate FiO2 08/18/19 13:06 97.3 81 16 140/94 94 Vital signs reviewed: Yes Physical Exam CONSTITUTIONAL Constitutional: Present well-developed, Present well-nourished HENT HENT: Present normocephalic, Present atraumatic, Present oropharynx clear/moist, Present nose normal HENT L/R: Present left ext ear normal, Present right ext ear normal EYES Eyes: Reports PERRL, Reports conjunctivae normal NECK Neck: Present ROM normal PULMONARY Pulmonary: Present effort normal, Present breath sounds normal CARDIOVASCULAR Cardiovascular: Present regular rhythm, Present heart sounds normal, Present capillary refill normal, Present normal rate GASTROINTESTINAL Abdominal: Present soft, Present nontender, Present bowel sounds normal GENITOURINARY Genitourinary: Present exam deferred SKIN Skin: Present warm, Present dry MUSCULOSKELETAL Musculoskeletal: Present ROM normal NEUROLOGICAL Neurological: Present alert PSYCHOLOGICAL Psychological: Absent mood/affect normal Results Laboratory Result Diagram: 08/18/19 1450 08/18/19 1450 Laboratory Laboratory Tests Test 08/18/19 14:50 White Blood Count 7.33 x10e3/uL (4.8-10.8) Red Blood Count 5.71 x10e6/uL (4.3-5.7) Hemoglobin 18.1 g/dL (14.0-18.0) Hematocrit 53.6 % (38.2-49.6) Mean Corpuscular Volume 93.9 fL (81-99) Mean Corpuscular Hemoglobin 31.7 pg (28-32) Mean Corpuscular Hemoglobin Concent 33.8 g/dL (31-35) Red Cell Distribution Width 13.2 % (11.7-14.4) Platelet Count 135 x10e3/uL (140-360) Neutrophils (%) (Auto) 61.3 % (38.7-80.0) Lymphocytes (%) (Auto) 26.5 % (18.0-39.1) Monocytes (%) (Auto) 10.2 % (4.4-11.3) Eosinophils (%) (Auto) 1.4 % (0.0-6.0) Basophils (%) (Auto) 0.3 % (0.0-1.0) Neutrophils # (Auto) 4.5 (2.1-6.9) Lymphocytes # (Auto) 1.9 (1.0-3.2) Monocytes # (Auto) 0.8 (0.2-0.8) Eosinophils # (Auto) 0.1 (0.0-0.4) Basophils # (Auto) 0.0 (0.0-0.1) Absolute Immature Granulocyte (auto 0.02 x10e3/uL (0-0.1) Urine Color Yellow (YELLOW) Urine Clarity Clear (CLEAR) Urine pH 6.5 (5 - 7) Urine Specific [place] 1.025 (1.010-1.025) Urine Protein >=300 (NEGATIVE) Urine Glucose (UA) Negative (NEGATIVE) Urine Ketones Negative (NEGATIVE) Urine Blood Moderate (NEGATIVE) Urine Nitrite Negative (NEGATIVE) Urine Bilirubin Negative (NEGATIVE) Urine Urobilinogen 4 mg/dL (0.2 - 1) Urine Leukocyte Esterase Negative (NEGATIVE) Urine RBC 6-10 /HPF (0-5) Urine WBC 0-5 /HPF (0-5) Urine Epithelial Cells Few /LPF (NONE) Urine Bacteria Few /HPF (NONE) Urine Yeast (NONE) Sodium Level 145 mmol/L (136-145) Potassium Level 5.2 mmol/L (3.5-5.1) Chloride Level 108 mmol/L (98-107) Carbon Dioxide Level 26 mmol/L (22-29) Anion Gap 16.2 mmol/L (8-16) Blood Urea Nitrogen 17 mg/dL (7-26) Creatinine 1.57 mg/dL (0.72-1.25) Estimat Glomerular Filtration Rate 42 ML/MIN (60-) BUN/Creatinine Ratio 11 (6-25) Glucose Level 99 mg/dL (74-118) Calcium Level 9.5 mg/dL (8.4-10.2) Total Bilirubin 0.9 mg/dL (0.2-1.2) Aspartate Amino Transf (AST/SGOT) 29 IU/L (5-34) Alanine Aminotransferase (ALT/SGPT) 21 IU/L (0-55) Alkaline Phosphatase 94 IU/L (40-150) Creatine Kinase 52 IU/L (30-200) Creatine Kinase MB 4.70 ng/mL (0-5.0) Troponin I 0.044 ng/mL (0-0.300) Total Protein 6.7 g/dL (6.5-8.1) Albumin 3.4 g/dL (3.5-5.0) Globulin 3.3 g/dL (2.3-3.5) Albumin/Globulin Ratio 1.0 (0.8-2.0) Lab results reviewed: Yes Imaging Imaging results reviewed: Yes Assessment & Plan Medical Decision Making MDM 83-year-old male sent to the ER by [facility] staff after he is difficult to arouse at home. On arrival to the ED patient is alert, has baseline dementia so unable to say time or place. Patient is oriented to self. Patient's labwork unremarkable except for mild hyperkalemia that was treated with oral kayexalate. Spoke to patient's , stable for discharge to [facility] Assessment & Plan Final Impression: (1) Hyperkalemia (2) AMS (altered mental status) Depart Disposition: HOME, SELF-CARE Last Vital Signs Date Time Temp Pulse Resp B/P (MAP) Pulse Ox O2 Delivery O2 Flow Rate FiO2 08/18/19 16:14 75 18 149/91 100 08/18/19 13:06 97.3 Home Meds Reported Medications Magnesium Hydroxide (MILK OF MAGNESIA) 2,400 Mg/10 Ml Oral.susp, 10 ML PO HS, ML 07/17/19 Loperamide Hcl (LOPERAMIDE) 2 Mg Tablet, 2 MG PO 5XD PRN for DIARRHEA, CAP 07/17/19 Acetaminophen (ACETAMINOPHEN) 325 Mg Tablet, 325 MG PO Q4HR for 5 Days, TAB 07/17/19 Hydralazine Hcl (HYDRALAZINE HCL) 25 Mg Tab, 25 MG PO TID, TAB 07/17/19 Ascorbic Acid (VITAMIN C) 500 Mg Tablet, PO BID 07/17/19 Erythromycin Base/Ethanol (ERYTHROMYCIN 2% GEL) 30 Gm Gel..gram., BID for TO "AFFECTED AREAS" 07/17/19 Apixaban (Eliquis) 5 Mg Tablet, BID 07/17/19 Menthol/Camphor (SARNA ANTI-ITCH LOTION) 222 Ml Lotion 07/17/19 [Vit] No Conflict Check 07/17/19 Sennosides/Docusate Sodium (Senexon-S 50-8.6 mg Tablet) 1 Each Tablet, 2 DAILY 07/17/19 Ramipril (RAMIPRIL) 5 Mg Capsule, 10 MG PO DAILY, #30 TAB 07/17/19 Polyethylene Glycol 3350 (POLYETHYLENE GLYCOL 3350) 17 Gm Powd.pack, 17 GM PO DAILY, PACKET 07/17/19 Metoprolol Succinate (METOPROLOL SUCCINATE) 25 Mg Tab.er.24h, PO DAILY 07/17/19 Liothyronine Sodium (LIOTHYRONINE SODIUM) 5 Mcg Tablet, PO DAILY 07/17/19 [Folic Acid] No Conflict Check, 0.4 MG DAILY 07/17/19 Aspirin (ASPIRIN EC) 81 Mg Tablet.dr, 81 MG PO DAILY, #30 TAB 07/17/19 Allopurinol (ALLOPURINOL) 100 Mg Tablet, 100 MG PO DAILY, #30 TAB 07/17/19 Levothyroxine Sodium (SYNTHROID) 125 Mcg Tab, 125 MCG PO 0630, #30 TAB 07/17/19 Omeprazole (OMEPRAZOLE) 40 Mg Capsule.dr, 20 PO ACB 07/17/19 Medications in the ED Sodium Polystyrene Sulfonate 30 gm ONCE ONCE PO Last administered on 08/18/19at 16:49; Admin Dose 30 GM; Start 08/18/19 at 16:45; Stop 08/18/19 at 16:46; Status DC ISELA OSWALD DO Aug 18, 2019 17:34
== END 2019-08-18 17:53 | disposition home or self-care (01) ==
LOC: ER 14:54
DX: R41.82 Altered mental status, unspecified (principal); E87.5 Hyperkalemia; I10 Essential (primary) hypertension; I48.91 Unspecified atrial fibrillation; E03.9 Hypothyroidism, unspecified; Z86.73 Personal history of transient ischemic attack (TIA), and cerebral infarction without residual deficits
CPT/HCPCS: 36415; 80053; 81001; 82550; 82553; 84484; 85025; 99284

== ENCOUNTER 2020-05-23 12:45 | Inpatient (IN) | payer MEDICARE ==
[~2020-05-23] VITALS: Ht 175.3 cm; Wt 99.8 kg
[2020-05-23] MEDS ORDERED: PANTOPRAZOLE 40 MG 10ML VIAL IV STA (12:48)
[2020-05-23 13:15] LABS: BASOPHILS # (AUTO) 0.1 (0.0-0.1); BASOPHILS % 0.4 % (0.0-1.0); EOSINOPHILS # (AUTO) 0.1 (0.0-0.4); EOSINOPHILS % 0.3 % (0.0-6.0); HEMATOCRIT 52.2 % (38.2-49.6); HEMOGLOBIN 17.9 g/dL (14.0-18.0); LYMPHOCYTES # (AUTO) 1.3 (1.0-3.2); MEAN CORPUSCULAR HEMOGLOBIN 32.5 pg (28-32); MEAN CORPUSCULAR HGB CONC 34.3 g/dL (31-35); MEAN CORPUSCULAR VOLUME 94.7 fL (81-99); MONOCYTES # (AUTO) 0.7 (0.2-0.8); MONOCYTES % 3.7 % (4.4-11.3); NEUTROPHILS # (AUTO) 16.9 (2.1-6.9); NEUTROPHILS % 88.1 % (38.7-80.0); PLATELET COUNT 209 x10e3/uL (140-360); RED BLOOD COUNT 5.51 x10e6/uL (4.3-5.7); RED CELL DISTRIBUTION WIDTH 12.5 % (11.7-14.4)
[2020-05-23] MEDS ORDERED: SODIUM CHLORIDE 0.9% 1000ML 1,000 ML IV STA (13:18)
[2020-05-23 13:30] LABS: OCCULT BLOOD STOOL POSITIVE (NEGATIVE)
[2020-05-23 13:33] LABS: INR 1.32; PROTHROMBIN TIME 17.3 seconds (11.9-14.5)
[2020-05-23 13:34] LABS: PARTIAL THROMBOPLASTIN TIME 32.6 seconds (23.8-35.5)
[2020-05-23 13:50] LABS: ALBUMIN 3.7 g/dL (3.5-5.0); ALBUMIN/GLOBULIN RATIO 1.1 (0.8-2.0); ANION GAP 19.4 mmol/L (8-16); CALCIUM 9.1 mg/dL (8.4-10.2); CREATININE, SERUM 1.69 mg/dL (0.72-1.25); MAGNESIUM 1.6 MG/DL (1.3-2.1); POTASSIUM 4.4 mmol/L (3.5-5.1)
[2020-05-23 13:57] LABS: CREATINE KINASE MB 1.7 ng/mL (0-5.0)
[2020-05-23 14:02] LABS: CLARITY,URINE HAZY (CLEAR); COLOR,URINE YELLOW (YELLOW); KETONES,URINE TRACE (NEGATIVE); LEUKOCYTE ESTERASE ,URINE NEGATIVE (NEGATIVE); NITRITE,URINE NEGATIVE (NEGATIVE); PROTEIN,URINE DIPSTICK 2+ (NEGATIVE); URINE UROBILINOGEN 1 mg/dL (0.2 - 1)
[2020-05-23] MEDS ORDERED: PANTOPRAZOLE SO40 MG PO (14:03)
[2020-05-23] MEDS ORDERED: MILK OF MA400 MG/5 M PO (14:03)
[2020-05-23] MEDS ORDERED: NAMENDA5 MG PO (14:03)
[2020-05-23] MEDS ORDERED: FOLIC ACID0.4 MG PO (14:03)
[2020-05-23] MEDS ORDERED: QUETIAPINE FUMA25 MG PO (14:03)
[2020-05-23] MEDS ORDERED: ARICEPT5 MG PO (14:03)
[2020-05-23] MEDS ORDERED: IOPAMIDOL 370 MG/ML 200 ML INFUS..BTL INJ ONE (14:14)
[2020-05-23] MEDS ORDERED: SODIUM CHLORIDE 0.9% 50ML 50 ML ONE ×2 (14:14→20:54)
[2020-05-23] MEDS ORDERED: SODIUM CHLORIDE 0.9% 1000ML 1,000 ML IV ONE (14:45)
[2020-05-23 15:20] LABS: RBC,URINE >50 /HPF (0-5)
[2020-05-23] MEDS: PIPERACILLIN/TAZOBACTAM 2.25 GM in SODIUM CHLORIDE 0.9% 50ML 50 ML IV SCH ×2 (15:35→21:10)
[2020-05-23] MEDS ORDERED: LORAZEPAM INJ 2 MG/ML VIAL ONE (15:37)
[2020-05-23] MEDS ORDERED: ONDANSETRON HCL INJ 2MG/ML 2ML 2 MG/ML VIAL IV PRN (15:45)
[2020-05-23] MEDS ORDERED: SODIUM CHLORIDE 0.9% 1000ML 1,000 ML IV SCH (15:45)
[2020-05-23] MEDS ORDERED: LORAZEPAM INJ 2 MG/ML VIAL IV ONE (15:45)
[2020-05-23] MEDS ORDERED: METRONIDAZOLE 500MG/NS 100ML IV SCH (15:45)
[2020-05-23] MEDS: METRONIDAZOLE 500MG/NS 100ML 100 ML IV SCH ×3 (16:11→23:08)
[2020-05-23] MEDS ORDERED: QUETIAPINE FUMARATE 25 MG TAB PO ONE (16:30)
[2020-05-23 16:51] LABS: NEUTROPHILS % (MANUAL) 86 % (40-74)
[2020-05-23 16:52] LABS: BAND NEUTROPHILS % (MANUAL) 5 %; LYMPHOCYTES % (MANUAL) 4 % (19-48); MONOCYTES % (MANUAL) 4 % (3.4-9.0); PLATELET ESTIMATE ADEQUATE; RBC MORPHOLOGY COMMENT NORMAL
[2020-05-23] MEDS ORDERED: HYDRALAZINE HCL 20 MG/ML VIAL IV PRN (19:30)
[2020-05-23] MEDS ORDERED: MELATONIN 5 MG TABLET PO PRN (19:30)
[2020-05-23] MEDS ORDERED: ACETAMINOPHEN 325 MG TAB PO PRN (19:30)
[2020-05-23 20:00] VITALS: BP 101/72
[2020-05-23 20:27] VITALS: BP 101/72
[2020-05-23] MEDS: DONEPEZIL HCL 5 MG TAB PO SCH (20:53)
[2020-05-23] MEDS: QUETIAPINE FUMARATE 25 MG TAB PO SCH (20:53)
[2020-05-23] MEDS ORDERED: PIPERACILLIN/TAZOBACTAM SOD 2.25 GM VIAL ONE (20:53)
[2020-05-23 21:00] VITALS: BP 101/72
[2020-05-23] MEDS ORDERED: BISACODYL 5 MG TAB EC PO ONE ×2 (23:15→23:45)
[2020-05-23] MEDS ORDERED: PHYTONADIONE 10 MG/ML AMP IV ONE (23:30)
[2020-05-24] VITALS (9 sets, daily range): BP systolic 95–158; BP diastolic 59–78
[2020-05-24] MEDS ORDERED: PHYTONADIONE 10MG/ML 20 MG in SODIUM CHLORIDE 0.9% 50ML 50 ML INJ ONE ×2
[2020-05-24] MEDS ORDERED: PHYTONADIONE 10MG/ML 20 MG in SODIUM CHLORIDE 0.9% 50ML 50 ML SC ONE ×2
[2020-05-24] MEDS ORDERED: PHYTONADIONE 10MG/ML 10 MG in SODIUM CHLORIDE 0.9% 50ML 50 ML SC ONE ×2
[2020-05-24] MEDS ORDERED: BISACODYL 5 MG TAB EC PO ONE ×2 (00:30→23:45)
[2020-05-24] MEDS ORDERED: CITRATE OF MAGNESIA 300ML BOTTLE PO ONE ×2 (01:00→05:00)
[2020-05-24] MEDS ORDERED: PIPERACILLIN/TAZOBACTAM SOD 2.25 GM VIAL ONE ×4 (02:22→21:01)
[2020-05-24] MEDS ORDERED: SODIUM CHLORIDE 0.9% 50ML 0 ML ONE (02:23)
[2020-05-24] MEDS: PIPERACILLIN/TAZOBACTAM 2.25 GM in SODIUM CHLORIDE 0.9% 50ML 50 ML IV SCH ×4 (03:00→20:54)
[2020-05-24] MEDS: METRONIDAZOLE 500MG/NS 100ML 100 ML IV SCH ×4 (04:28→22:35)
[2020-05-24] MEDS ORDERED: SODIUM CHLORIDE 0.9% 100 ML ONE (05:33)
[2020-05-24] MEDS: PANTOPRAZOLE 40 MG 10ML VIAL IV SCH ×3 (06:30→16:05)
[2020-05-24] MEDS: LEVOTHYROXINE SODIUM 125 MCG TAB PO SCH (06:30)
[2020-05-24 07:32] LABS: BASOPHILS % 0.3 % (0.0-1.0); EOSINOPHILS % 0.3 % (0.0-6.0); HEMOGLOBIN 17.1 g/dL (14.0-18.0); LYMPHOCYTES # (AUTO) 1.3 (1.0-3.2); LYMPHOCYTES % 9.2 % (18.0-39.1); MEAN CORPUSCULAR HEMOGLOBIN 32.9 pg (28-32); MEAN CORPUSCULAR HGB CONC 33.5 g/dL (31-35); MEAN CORPUSCULAR VOLUME 98.1 fL (81-99); MONOCYTES % 6.9 % (4.4-11.3); NEUTROPHILS # (AUTO) 11.4 (2.1-6.9); NEUTROPHILS % 82.9 % (38.7-80.0); PLATELET COUNT 148 x10e3/uL (140-360); RED CELL DISTRIBUTION WIDTH 13.1 % (11.7-14.4)
[2020-05-24 07:58] LABS: CREATINE KINASE MB 2.4 ng/mL (0-5.0)
[2020-05-24 08:18] LABS: ALBUMIN 3.1 g/dL (3.5-5.0); ALBUMIN/GLOBULIN RATIO 1.1 (0.8-2.0); ANION GAP 14.4 mmol/L (8-16); CREATININE, SERUM 1.47 mg/dL (0.72-1.25); POTASSIUM 4.4 mmol/L (3.5-5.1)
[2020-05-24] MEDS ORDERED: SODIUM CHLORIDE 0.9% 50ML 50 ML ONE ×3 (08:59→21:01)
[2020-05-24] MEDS: RAMIPRIL 5 MG CAP PO SCH (09:00)
[2020-05-24] MEDS: MEMANTINE 10 MG TAB PO SCH (09:00)
[2020-05-24] MEDS: METOPROLOL SUCCINATE 25 MG TAB XL PO SCH (09:00)
[2020-05-24] MEDS: QUETIAPINE FUMARATE 25 MG TAB PO SCH ×3 (09:00→20:54)
[2020-05-24] MEDS: FOLIC ACID 1 MG TAB PO SCH (09:00)
[2020-05-24] MEDS: LIOTHYRONINE SODIUM 5 MCG TAB PO SCH (09:00)
[2020-05-24] MEDS: ALLOPURINOL 100 MG TAB PO SCH (09:00)
[2020-05-24 11:02] LABS: C DIFFICILE TOXIN A&B AMP PROB NEGATIVE (NEGATIVE)
[2020-05-24 15:29] LABS: CREATINE KINASE MB 2.7 ng/mL (0-5.0)
[2020-05-24] MEDS: DONEPEZIL HCL 5 MG TAB PO SCH (20:54)
[2020-05-25] VITALS: BP 114/61
[2020-05-25] MEDS ORDERED: BISACODYL 5 MG TAB EC PO ONE ×2 (00:15→00:45)
[2020-05-25] MEDS ORDERED: PIPERACILLIN/TAZOBACTAM SOD 2.25 GM VIAL ONE ×3 (02:24→17:18)
[2020-05-25] MEDS ORDERED: SODIUM CHLORIDE 0.9% 50ML 50 ML ONE ×3 (02:26→17:18)
[2020-05-25] MEDS: PIPERACILLIN/TAZOBACTAM 2.25 GM in SODIUM CHLORIDE 0.9% 50ML 50 ML IV SCH ×3 (03:08→16:00)
[2020-05-25 04:00] VITALS: BP 119/70
[2020-05-25] MEDS: METRONIDAZOLE 500MG/NS 100ML 100 ML IV SCH ×3 (04:30→17:00)
[2020-05-25] MEDS ORDERED: CITRATE OF MAGNESIA 300ML BOTTLE PO ONE (05:00)
[2020-05-25] MEDS: LEVOTHYROXINE SODIUM 125 MCG TAB PO SCH (05:54)
[2020-05-25 06:07] LABS: BASOPHILS % 0.4 % (0.0-1.0); EOSINOPHILS # (AUTO) 0.3 (0.0-0.4); EOSINOPHILS % 2.5 % (0.0-6.0); HEMATOCRIT 48.3 % (38.2-49.6); HEMOGLOBIN 16.7 g/dL (14.0-18.0); LYMPHOCYTES # (AUTO) 1.3 (1.0-3.2); LYMPHOCYTES % 11.5 % (18.0-39.1); MEAN CORPUSCULAR HEMOGLOBIN 33.1 pg (28-32); MEAN CORPUSCULAR HGB CONC 34.6 g/dL (31-35); MEAN CORPUSCULAR VOLUME 95.8 fL (81-99); MONOCYTES # (AUTO) 0.8 (0.2-0.8); MONOCYTES % 7.4 % (4.4-11.3); NEUTROPHILS # (AUTO) 8.5 (2.1-6.9); NEUTROPHILS % 77.8 % (38.7-80.0); PLATELET COUNT 160 x10e3/uL (140-360); RED BLOOD COUNT 5.04 x10e6/uL (4.3-5.7); RED CELL DISTRIBUTION WIDTH 13.2 % (11.7-14.4)
[2020-05-25 06:28] LABS: ALBUMIN/GLOBULIN RATIO 1.1 (0.8-2.0); ANION GAP 12.7 mmol/L (8-16); CREATININE, SERUM 1.38 mg/dL (0.72-1.25); POTASSIUM 3.7 mmol/L (3.5-5.1)
[2020-05-25] MEDS: PANTOPRAZOLE 40 MG 10ML VIAL IV SCH ×3 (07:30→17:00)
[2020-05-25 07:37] VITALS: BP 145/78
[2020-05-25 08:00] VITALS: BP 145/78
[2020-05-25] MEDS: LIOTHYRONINE SODIUM 5 MCG TAB PO SCH (09:00)
[2020-05-25] MEDS: ALLOPURINOL 100 MG TAB PO SCH (09:00)
[2020-05-25] MEDS: QUETIAPINE FUMARATE 25 MG TAB PO SCH ×2 (09:00→17:00)
[2020-05-25] MEDS: RAMIPRIL 5 MG CAP PO SCH (09:00)
[2020-05-25] MEDS: FOLIC ACID 1 MG TAB PO SCH (09:00)
[2020-05-25] MEDS: METOPROLOL SUCCINATE 25 MG TAB XL PO SCH (09:00)
[2020-05-25] MEDS: MEMANTINE 10 MG TAB PO SCH (09:00)
[2020-05-25] MEDS ORDERED: CIPRO500 MG PO (09:31)
[2020-05-25] MEDS ORDERED: FLAGYL500 MG PO (09:31)
[2020-05-25] MEDS ORDERED: SOD PHOSPHATE/SOD BIPHOSPHATE ENEMA 132 ML BTL PR NR (11:00)
[2020-05-25 12:03] VITALS: BP 140/79
[2020-05-25] MEDS ORDERED: PROPOFOL IV EMULSION 10 MG/ML 20 ML VIAL ONE ×2 (12:04→14:04)
[2020-05-25] MEDS ORDERED: PHENYLEPHRINE HCL 1% 10 MG/ML VIAL ONE (12:04)
[2020-05-25] MEDS ORDERED: LIDOCAINE HCL 2% LOCAL INJ 5 ML SDV VIAL INJ ONE (12:04)
[2020-05-25] MEDS ORDERED: HYOSCYAMINE SULFATE 0.5 MG/ML INJ ONE (13:33)
[2020-05-25] MEDS ORDERED: GLUCAGON FOR INJ 1 MG VIAL ONE (13:33)
[2020-05-25 15:58] VITALS: BP 159/77
[2020-05-25] MEDS ORDERED: HYDROCORTISONE ACETATE 25 MG/SUPP.RECT SUPP RC SCH (17:00)
== END 2020-05-25 20:43 | DRG 872 ==
LOC: ER 13:08 → ERHOLD 16:00 → MED/SURG2 19:46
PROVIDERS: ADMIT Internal Medicine; ATTEND Internal Medicine
PROC: 0DBL8ZX Excision of Transverse Colon, Via Natural or Artificial Opening Endoscopic, Diagnostic (ICD-10-PCS; principal; 2020-05-25 13:14)
DX: A41.9 Sepsis, unspecified organism (principal); K51.211 Ulcerative (chronic) proctitis with rectal bleeding; I48.20 Chronic atrial fibrillation, unspecified; R65.20 Severe sepsis without septic shock; F03.90 Unspecified dementia, unspecified severity, without behavioral disturbance, psychotic disturbance, mood disturbance, and anxiety; E66.9 Obesity, unspecified; I12.9 Hypertensive chronic kidney disease with stage 1 through stage 4 chronic kidney disease, or unspecified chronic kidney disease; N18.30 Chronic kidney disease, stage 3 unspecified; Z68.32 Body mass index [BMI] 32.0-32.9, adult; Z20.822 Contact with and (suspected) exposure to COVID-19; E03.9 Hypothyroidism, unspecified; K63.5 Polyp of colon; Z79.01 Long term (current) use of anticoagulants; K64.9 Unspecified hemorrhoids
CPT/HCPCS: 36415; 45380; 45385; 71045; 74174; 80053; 81001; 82270; 82550; 82553; 83605; 83630; 83735; 84484; 85025; 85610; 85730; 86850; 86900; 86920; 87040; 87045; 87086; 87177; 87493; 88305; 93005; 99251; 99284; J1610; J1980; J2001; J2060; J2370; J2405; J2543; J3430; J7030; J7050; Q9967; U0002